=== PATIENT | male | born 1990 | race Caucasian/White ===

== ENCOUNTER 2018-11-10 18:17 | Emergency (ER) | payer SELFPAY ==
[~2018-11-10] VITALS: Ht 167.6 cm; Wt 65.8 kg
[2018-11-10 18:45] VITALS: BP 111/74
--- NOTE | 2018-11-10 18:46 | NUR ---
TO LOBBY WITH VSS. AWAITING BED IN ED.
--- NOTE | 2018-11-10 19:11 | NUR ---
PT TO ER BED 12
[2018-11-10] MEDS ORDERED: diphenhydrAMINE 50 MG CAP PO ONE (19:50)
[2018-11-10] MEDS ORDERED: methylPREDNISolone SS 125 MG in WATER STERILE 2 ML IM ONE (19:50)
[2018-11-10] MEDS ORDERED: FAMOTIDINE 20 MG TAB PO ONE (19:50)
--- NOTE | 2018-11-10 20:12 | NUR ---
PATIENT PRESENTS TO ER FOR BUG BITE TO LEFT HAND AROUND 1900 LAST NIGHT. C/O SWELLING ITCHING AND 10/10 PAIN. PATIENT IS AA&OX4. RESPIRATIONS EVEN AND UNLABORED. UPDATED ON POC, VERBALIZED UNDERSTANDING. WILL CONTINUE TO MONITOR.
[2018-11-10] MEDS ORDERED: KETOROLAC 60 MG/2 ML VIAL IM ONE (20:20)
[2018-11-10 21:02] VITALS: BP 109/81
--- NOTE | 2018-11-10 21:03 | NUR ---
Patient discharged with v/s stable. Written and verbal after care instructions given and explained. Patient alert, oriented and verbalized understanding of instructions. Ambulatory with steady gait. All questions addressed prior to discharge. ID band removed. Patient advised to follow up with PMD. Rx of PREDNISONE, BENADRYL AND KEFLEX given. Patient educated on indication of medication including possible reaction and side effects. Opportunity to ask questions provided and answered.
== END 2018-11-10 21:03 | disposition home or self-care (01) ==
LOC: MED 18:17
DX: L25.9 Unspecified contact dermatitis, unspecified cause (principal)
CPT/HCPCS: 96372; 99283; J2930; J1885